=== PATIENT | female | born 1995 | race American Indian/Alaskan Native ===

== ENCOUNTER 2021-04-14 09:45 | Emergency (ER) | payer SELFPAY ==
--- NOTE | 2021-04-14 13:38 | Emergency Department Report ---
ED Back Pain/Injury HPI - General Stated Complaint: BACK PAIN Time Seen by Provider: 04/14/21 13:33 Source: patient Mode of arrival: Ambulatory Limitations: No Limitations - History of Present Illness Initial Comments: Patient is a 25-year-old female presents emergency room complaints of right lower back pain that began 6 days ago. She denies any fall or injury. States that she just started working at [employer] and was lifting heavy boxes. She states that she does not usually lift. She denies any fever, nausea, vomiting, diarrhea, abdominal pain, urinary symptoms, numbness, weakness, bowel or bladder incontinence. She denies any fall or injury. no past medical history. No allergies to medications. She is currently on her menstrual cycle - Related Data Previous Rx's Medication Instructions Recorded Last Taken Type Menthol/Camphor [[place] 1 applicatio TP BID #18 g 04/14/21 Unknown Rx Ointment] Naproxen 375 mg PO BID PRN #20 tab 04/14/21 Unknown Rx methOCARBAMOL [Robaxin TAB] 500 mg PO BID PRN #20 tab 04/14/21 Unknown Rx Allergies Allergy/AdvReac Type Severity Reaction Status Date / Time No Known Allergies Allergy Unverified 04/14/21 13:36 ED Review of Systems ROS: Stated complaint: BACK PAIN Other details as noted in HPI Comment: All other systems reviewed and negative ED Past Medical Hx - Medications Home Medications: Home Medications Medication Instructions Recorded Confirmed Last Taken Type Menthol/Camphor [[place] 1 applicatio TP BID #18 g 04/14/21 Unknown Rx Ointment] Naproxen 375 mg PO BID PRN #20 tab 04/14/21 Unknown Rx methOCARBAMOL [Robaxin TAB] 500 mg PO BID PRN #20 tab 04/14/21 Unknown Rx ED Physical Exam - General Limitations: No Limitations General appearance: alert, in no apparent distress - Head Head exam: Present: atraumatic, normocephalic - Eye Eye exam: Present: normal appearance - ENT ENT exam: Present: mucous membranes moist - Neck Neck exam: Present: normal inspection, full ROM. Absent: tenderness, meningismus - Respiratory Respiratory exam: Present: normal lung sounds bilaterally. Absent: respiratory distress, wheezes, rales, rhonchi, stridor, chest wall tenderness, accessory muscle use, decreased breath sounds, prolonged expiratory - Cardiovascular Cardiovascular Exam: Present: regular rate, normal rhythm, normal heart sounds. Absent: systolic murmur, diastolic murmur, rubs, gallop - Back Exam Back exam: Present: normal inspection, full ROM, paraspinal tenderness (right sided lumbar paraspinal muscular ttp, no midline C-spine, T-spine or L-spine ttp, no step offs, no deformities). Absent: vertebral tenderness - Neurological Exam Neurological exam: Present: alert, oriented X3, CN II-XII intact, normal gait. Absent: motor sensory deficit - Psychiatric Psychiatric exam: Present: normal affect, normal mood - Skin Skin exam: Present: warm, dry, intact ED Course Vital Signs 04/14/21 14:11 Pulse Rate 66 Respiratory 18 Rate Blood Pressure 131/75 [Right] ED Medical Decision Making - Medical Decision Making Patient is a 25-year-old female presents emergency room complaints of right lower back pain that began 6 days ago. She denies any fall or injury. States that she just started working at [employer] and was lifting heavy boxes. She states that she does not usually lift. She denies any fever, nausea, vomiting, diarrhea, abdominal pain, urinary symptoms, numbness, weakness, bowel or bladder incontinence. She denies any fall or injury. no past medical history. No allergies to medications. She is currently on her menstrual cycle. vss. on exam: right sided lumbar paraspinal muscular ttp, no midline C-spine, T-spine or L-spine ttp, no step offs, no deformities. Patient has no red flag warning signs of back pain, no trauma, no unexplained weight loss, no fever, no IV drug use, no steroid use, no history of cancer, no neuro deficits, age is not greater than 50. Patient given prescription for medications. advised patient Please take medication as prescribed as needed. May use ice pack, heating pad, rest, epsom salt bath. Do not use heat or ice while using tiger balm. Follow-up with a primary care doctor for reexamination. Return to emergency room for any new or worsening symptoms. Critical care attestation.: If time is entered above; I have spent that time in minutes in the direct care of this critically ill patient, excluding procedure time. ED Disposition Clinical Impression: Low back pain Qualifiers: Chronicity: acute Back pain laterality: right Sciatica presence: without sciatica Qualified Code(s): M54.50 - Low back pain, unspecified Disposition: 01 HOME / SELF CARE / HOMELESS Is pt being admited?: No Does the pt Need Aspirin: No Condition: Stable Instructions: Muscle Strain, [id number] Additional Instructions: Please take medication as prescribed as needed. May use ice pack, heating pad, rest, epsom salt bath. Do not use heat or ice while using tiger balm. Follow- up with a primary care doctor for reexamination. Return to emergency room for any new or worsening symptoms. Prescriptions: Naproxen 375 mg PO BID PRN #20 tab PRN Reason: pain methOCARBAMOL [Robaxin TAB] 500 mg PO BID PRN #20 tab PRN Reason: muscle spasm/pain Menthol/Camphor [[place] Ointment] 1 applicatio TP BID #18 g Referrals: KOFI CYR MD [Staff Physician] - 3-5 Days [facility] [Provider Group] - 3-5 Days Forms: Work/School Release Form(ED) Time of Disposition: 13:36 Print Language: ARMENIAN
[2021-04-14 14:12] VITALS: BP 131/75
== END 2021-04-14 14:12 | disposition home or self-care (01) ==
LOC: ED 09:45
DX: M54.50 Low back pain, unspecified (principal)
CPT/HCPCS: 99282